=== PATIENT | female | born 1950 | race American Indian/Alaskan Native ===

== ENCOUNTER 2016-12-05 03:07 | Emergency (ER) | payer MEDICARE ==
[2016-12-05] MEDS ORDERED: ZOFRAN IV ONE (03:47)
[2016-12-05] MEDS ORDERED: NITROSTAT SL ONE (03:47)
[2016-12-05 04:17] LABS: Eosinophils % (Auto) 2.7 % (0.0-4.3); Hematocrit 38.8 % (30.3-42.9); Hemoglobin 12.6 gm/dl (10.1-14.3); Mean Corpuscular HGB Conc 32 % (30-34); Mean Corpuscular Hemoglobin 27 pg (28-32); Mean Corpuscular Volume 85 fl (79-97); Platelet Count 225 K/mm3 (140-440); Red Blood Count 4.59 M/mm3 (3.65-5.03); Red Cell Distribution Width 14.6 % (13.2-15.2); White Blood Count 6.1 K/mm3 (4.5-11.0)
[2016-12-05 04:34] LABS: Alanine Aminotransferase 18 units/L (7-56); Albumin 3.8 g/dL (3.9-5); Albumin/Globulin Ratio 1.2 %; Alkaline Phosphatase 104 units/L (35-129); Anion Gap 19 mmol/L; BUN/Creatinine Ratio 16.66; Blood Urea Nitrogen 15 mg/dL (7-17); Calcium 10.2 mg/dL (8.4-10.2); Carbon Dioxide 24 mmol/L (22-30); Chloride 97.9 mmol/L (98-107); Glucose 110 mg/dL (65-100); Lipase 48 units/L (13-60); Potassium 3.4 mmol/L (3.6-5.0); Sodium 137 mmol/L (137-145); Total Protein 6.9 g/dL (6.3-8.2)
[2016-12-05 04:52] LABS: Bilirubin,Urine NEG (Negative); Blood,Urine NEG (Negative); Ketones,Urine NEG (Negative); Leukocyte Esterase,Urine NEG (Negative); Nitrite,Urine NEG (Negative); Protein,Urine <15 mg/dL mg/dL (Negative); Urobilinogen,Urine < 2.0 mg/dL (<2.0); WBC,Urine < 1.0 /HPF (0.0-6.0)
--- NOTE | 2016-12-05 06:36 | Emergency Department Report ---
ED Chest Pain HPI - General Chief Complaint: Chest Pain Stated Complaint: CHEST PAIN Time Seen by Provider: 12/05/16 06:20 Source: EMS Mode of arrival: Stretcher Limitations: No Limitations - History of Present Illness Initial Comments: This is a 66-year-old Afro-[place] female who presents to the emergency department from home with complaint of pain to the left side of her back, radiating towards the left arm that started about 1 hour prior to presentation, around 2 AM. She says that the pain felt like it was around her heart. She denies any shortness of breath but says that it did feel like it was harder to catch her breath secondary to the pain. She denies any nausea, vomiting or diaphoresis. The patient took 324 mg of aspirin prior to arrival. She received a sublingual nitroglycerin upon arrival and now says her chest pain is greatly improved. She has a past nuchal history of asthma, GERD, hypertension. Her primary care doctor is Dr. Dino Murphy and she goes to [facility]. She last had a stress test about 3 years ago. Recent travel or sick contacts at home. Severity scale (0 -10): 10 - Related Data Allergies Allergy/AdvReac Type Severity Reaction Status Date / Time latex AdvReac Rash Verified 10/25/15 10:16 SILVINO score - Silvino Score Age > 65: (1) Yes Aspirin use within the Past 7 Days: (1) Yes 3 or more CAD Risk Factors: (0) No 2 or more Angina events in past 24 hrs: (0) No Known CAD with more than 50% Stenosis: (0) No Elevated Cardiac Markers: (0) No ST Deviation Greater than 0.5mm: (0) No SILVINO Score: 2 ED Review of Systems ROS: Stated complaint: CHEST PAIN Other details as noted in HPI Comment: All other systems reviewed and negative Constitutional: denies: chills, fever Eyes: denies: eye pain, eye discharge, vision change ENT: denies: ear pain, throat pain Respiratory: denies: cough, wheezing Cardiovascular: chest pain. denies: palpitations Gastrointestinal: denies: abdominal pain, nausea, diarrhea Genitourinary: denies: urgency, dysuria, discharge Musculoskeletal: back pain, arthralgia Skin: denies: rash, lesions Neurological: denies: headache, weakness, paresthesias ED Past Medical Hx - Past Medical History Hx Hypertension: Yes Hx GERD: Yes Hx Asthma: Yes Additional medical history: HEART MURMUR. HIGH CHOLESTEROL. HYPERTHYROID. SLEEP APNEA. SPINAL STENOSIS. PREDIABETES - Surgical History Additional Surgical History: TONSILLECTOMY. TUBAL LIGATION. HYSTERECTOMY - Social History Smoking Status: Unknown if ever smoked Substance Use Type: None ED Physical Exam - General Limitations: No Limitations - Other Other exam information: GENERAL: The patient is well-developed well-nourished. HEENT: Normocephalic. Atraumatic. Extraocular motions are intact. Patient has moist mucous membranes. Pupils equal reactive to light bilaterally. NECK: Supple. Trachea is midline. CHEST/LUNGS: Clear to auscultation. There is no respiratory distress noted. HEART/CARDIOVASCULAR: Regular. There is no tachycardia. There is no gallop rub or murmur. ABDOMEN: Abdomen is soft, nontender. Patient has normal bowel sounds. There is no abdominal distention. SKIN: There is no rash. There is no edema. There is no diaphoresis. NEURO: The patient is awake, alert, and oriented. The patient is cooperative. The patient has no focal neurologic deficits. The patient has normal speech. MUSCULOSKELETAL: There is no tenderness or deformity. There is no limitation range of motion. There is no evidence of acute injury. ED Course Vital Signs 12/05/16 12/05/16 12/05/16 03:53 04:02 04:10 Temperature 98.7 F Pulse Rate 65 77 81 Respiratory 14 21 14 Rate Blood Pressure Blood Pressure 176/86 [Left] O2 Sat by Pulse 99 95 96 Oximetry 12/05/16 12/05/16 12/05/16 04:20 04:30 04:40 Temperature Pulse Rate 70 76 77 Respiratory 17 16 17 Rate Blood Pressure Blood Pressure [Left] O2 Sat by Pulse 95 95 92 Oximetry 12/05/16 12/05/16 12/05/16 04:50 05:00 05:10 Temperature Pulse Rate 76 76 Respiratory 20 18 19 Rate Blood Pressure Blood Pressure [Left] O2 Sat by Pulse 94 89 89 Oximetry 12/05/16 12/05/16 12/05/16 05:20 05:30 05:40 Temperature Pulse Rate 75 Respiratory 18 19 24 Rate Blood Pressure Blood Pressure [Left] O2 Sat by Pulse 92 90 90 Oximetry 12/05/16 12/05/16 12/05/16 05:50 06:00 06:10 Temperature Pulse Rate 79 75 Respiratory 20 32 H 17 Rate Blood Pressure 107/56 Blood Pressure [Left] O2 Sat by Pulse 90 91 91 Oximetry 12/05/16 12/05/16 12/05/16 06:12 06:20 06:34 Temperature Pulse Rate 78 95 H Respiratory 19 21 31 H Rate Blood Pressure 107/56 107/56 Blood Pressure 107/56 [Left] O2 Sat by Pulse 92 99 96 Oximetry 12/05/16 12/05/16 12/05/16 06:40 06:50 07:00 Temperature Pulse Rate 84 Respiratory 25 H 18 Rate Blood Pressure 107/56 107/56 117/68 Blood Pressure [Left] O2 Sat by Pulse 96 96 97 Oximetry 12/05/16 12/05/16 12/05/16 07:10 07:20 07:30 Temperature Pulse Rate 75 Respiratory Rate Blood Pressure 117/68 117/68 123/77 Blood Pressure [Left] O2 Sat by Pulse 91 92 96 Oximetry 12/05/16 12/05/16 12/05/16 07:40 07:50 08:00 Temperature Pulse Rate 71 Respiratory Rate Blood Pressure 123/77 123/77 118/71 Blood Pressure [Left] O2 Sat by Pulse 91 91 91 Oximetry 12/05/16 12/05/16 12/05/16 08:10 08:20 08:25 Temperature 98.3 F Pulse Rate 76 144 H 83 Respiratory 15 Rate Blood Pressure 118/71 118/71 Blood Pressure 117/72 [Left] O2 Sat by Pulse 91 98 Oximetry 12/05/16 12/05/16 12/05/16 08:38 08:40 08:50 Temperature Pulse Rate 81 85 71 Respiratory 15 21 12 Rate Blood Pressure 117/72 117/72 117/72 Blood Pressure [Left] O2 Sat by Pulse 98 96 97 Oximetry 12/05/16 12/05/16 12/05/16 09:00 09:10 09:20 Temperature Pulse Rate Respiratory 15 17 Rate Blood Pressure 121/72 118/71 118/71 Blood Pressure [Left] O2 Sat by Pulse 92 91 93 Oximetry 12/05/16 12/05/16 12/05/16 09:30 09:40 09:57 Temperature Pulse Rate 70 71 Respiratory 16 15 19 Rate Blood Pressure 120/76 120/76 Blood Pressure 120/76 [Left] O2 Sat by Pulse 98 97 95 Oximetry - Consultations Consultation #1: I spoke with the PA for [facility], Skye Todd, who has set the patient up for an outpatient appointment on Sunday with Dr. Doyle at 2:20 PM. 12/05/16 11:20 ED Medical Decision Making - Lab Data Result diagrams: 12/05/16 03:52 12/05/16 03:52 - EKG Data -: EKG Interpreted by Me EKG shows normal: sinus rhythm, axis, intervals, QRS complexes, ST-T waves ( flat T waves or mild T-wave inversions to the lateral and inferior leads) Rate: normal - EKG Data When compared to previous EKG there are: previous EKG unavailable Interpretation: other (flattened T waves or T-wave inversions to the lateral or inferior leads) - Radiology Data Radiology results: report reviewed, image reviewed interpreted by me: Chest x-ray did not show any acute process. Heart is normal shape and size. No effusions. No pneumothorax. No signs of pneumonia seen. CTA of the chest does not show any pulmonary embolism or aortic dissection and was read as a normal examination by radiology. - Medical Decision Making 66-year-old female presents after she had developed some chest pain earlier today. It resolved with a single sublingual nitroglycerin and some aspirin. She was evaluated with physical exam, labs, imaging and EKG. EKG does not show any signs of ST elevation HI or dysrhythmia. Heart and lung sounds are normal auscultation. Patient's labs are unremarkable including negative troponins 2. She did have a slightly elevated and equivocal d-dimer so a CT angiography of the chest was done that was a normal examination. Since I see the patient in the emergency department she has been pain-free and resting comfortably. I spoke with [facility] who agrees with the plan for discharge home and has arranged for outpatient follow-up. The patient will return to the emergency department with any return of her chest pain or any acute distress. She understands and agrees to plan. - Differential Diagnosis HI, PE, GERD, costochondritis, pneumonia, CHF Critical Care Time: No Critical care attestation.: If time is entered above; I have spent that time in minutes in the direct care of this critically ill patient, excluding procedure time. ED Disposition Clinical Impression: Chest pain Qualifiers: Chest pain type: unspecified Qualified Code(s): R07.9 - Chest pain, unspecified Disposition: DC- TO HOME OR SELFCARE Is pt being admited?: No Condition: Stable Instructions: Chest Pain (ED) Additional Instructions: Please follow-up with Dr. Scott on Sunday during the appointment that was just made for you. Please call them ahead of time to confirm your appointment. Return to the emergency department with any return of your chest pain or any acute distress. Referrals: SHERLEY SCOTT MD [Staff Physician] - 12/08/16 2:20 pm Time of Disposition: 09:43
--- NOTE | 2016-12-05 07:30 | XRay Report ---
Single view chest: Compared to 10/25/15. History: Chest pain. Findings: Normal cardiomediastinal silhouette. Trachea is midline. No consolidation, pneumothorax or pleural effusion. Impression: No acute cardiopulmonary findings.
[2016-12-05] MEDS ORDERED: NACL ONE (08:09)
--- NOTE | 2016-12-05 09:05 | Cat Scan Report ---
CT angiography of the chest with 3-D reconstructed images. History: Chest pain. Findings: There is no evidence of pulmonary emboli. The lungs are free of acute infiltrates or congestive changes. There is no pleural fluid. The mediastinum and hilar regions are normal. No axillary abnormalities are seen. Impression: Normal study.
[2016-12-05 10:06] VITALS: BP 120/76
== END 2016-12-05 10:07 | disposition home or self-care (01) ==
LOC: ED 03:07
DX: R07.9 Chest pain, unspecified (principal); I10 Essential (primary) hypertension; K21.9 Gastro-esophageal reflux disease without esophagitis; J45.909 Unspecified asthma, uncomplicated; E78.00 Pure hypercholesterolemia, unspecified; Z91.040 Latex allergy status
CPT/HCPCS: 36415; 71010; 71275; 80053; 81001; 83690; 84484; 85025; 85379; 93005; 93010; 96374; 99285; J2405; Q9967